=== PATIENT | female | born 1970 | race Asian ===

== ENCOUNTER 2019-02-08 23:54 | Emergency (ER) | payer MEDICAID ==
[~2019-02-08] VITALS: Ht 157.5 cm; Wt 79.4 kg
[2019-02-09] VITALS: BP 159/101
--- NOTE | 2019-02-09 | NUR ---
ED Nurse Note: PT AAOX4, VSS, NO ACUTE DISTRESS. PT COOPERATIVE AND WELL GROOMED. PATIENT AMBULATED TO ED FROM HOME C/O ASTHMA ATTACK SINCE 1699. PATIENT REPORTS TAKING INHALER WITH NO RELIEF. AUDIBLE WHEEZES NOTED HX INTUBATION 2014. PATIENT ALSO REPORTS BACK PAIN WITH NO INJURY. PT BROTHER AT BEDSIDE.
[2019-02-09] MEDS ORDERED: GLIPIZIDE5 MG ORAL (00:02)
[2019-02-09] MEDS ORDERED: AMLODIPINE BESYL5 MG ORAL (00:02)
[2019-02-09] MEDS ORDERED: ADVAIR 500-501 EACH INH (00:02)
[2019-02-09] MEDS ORDERED: LOSARTAN POTASS50 MG ORAL (00:02)
[2019-02-09] MEDS ORDERED: HYDROCHLOROTHIA50 MG ORAL (00:02)
[2019-02-09] MEDS: Albuterol ud Inhalation HHN SCH ×3 (00:17→00:51)
[2019-02-09] MEDS: Ipratropium 0.02% Inh Soln 2.5ml UD HHN SCH ×3 (00:17→00:51)
[2019-02-09 02:00] VITALS: BP 125/78
--- NOTE | 2019-02-09 02:05 | NUR ---
ED Nurse Note: URINE SENT TO LAB.
[2019-02-09 02:18] LABS: APPEARANCE,URINE CLEAR; BILIRUBIN, URINE NEGATIVE (NEGATIVE); COLOR,URINE PALE YELLOW; GLUCOSE, URINE (UA) NEGATIVE (NEGATIVE); KETONES,URINE NEGATIVE (NEGATIVE); LEUKOCYTE ESTERASE ,URINE NEGATIVE (NEGATIVE); NITRITE,URINE NEGATIVE (NEGATIVE); PH,URINE 6 (4.5-8.0); PROTEIN,URINE NEGATIVE (NEGATIVE); UROBILINOGEN,URINE NORMAL MG/DL (0.0-1.0)
[2019-02-09] MEDS ORDERED: TYLENOL EXTRA500 MG ORAL (02:42)
[2019-02-09] MEDS ORDERED: PREDNISONE20 MG ORAL (02:42)
[2019-02-09] MEDS ORDERED: ALBUTEROL SULF8.5 GM INH (02:42)
[2019-02-09 02:45] VITALS: BP 125/78
--- NOTE | 2019-02-09 02:45 | NUR ---
ER DISCHARGE NOTE: Patient is cleared to be discharged per ERMD, pt is aox4, on room air, with stable vital signs. pt was given dc and prescription instructions, pt was able to verbalize understanding, pt id band REMOVED. pt is able to ambulate with steady gait. pt took all belongings.
--- NOTE | 2019-02-09 03:07 | Emergency Room Report ---
History of Present Illness General Chief Complaint: Asthma Source: Patient Present Illness HPI 48-year-old female presents ED for evaluation. Complaining of wheezing and shortness of breath. History of asthma. Started tonight. Denies fevers or chills. Denies cough. Denies chest pain. Denies smoking. Also complaining of lower back pain. Dull, 6 out of 10, nonradiating. Denies any recent fall or injury. Denies flank pain. Denies dysuria or hematuria. No other aggravating relieving factors. Denies any other associated symptoms Allergies: Coded Allergies: DIPHENHYDRAMINE (Verified Allergy, Unknown, 02/09/19) EGG (Verified Allergy, Unknown, 02/09/19) PENICILLINS (Verified Allergy, Unknown, 02/09/19) Patient History Past Medical History: DM, HTN, asthma Pertinent Family History: none Social History: Denies: smoking, alcohol use, drug use Now: No Immunizations: UTD Reviewed Nursing Documentation: PMH: Agreed; PSxH: Agreed Nursing Documentation-PMH Past Medical History: No History, Except For Hx Hypertension: Yes Hx Asthma: Yes Hx Diabetes: Yes Review of Systems All Other Systems: negative except mentioned in HPI Physical Exam Vital Signs Date Time Temp Pulse Resp B/P (MAP) Pulse Ox O2 Delivery O2 Flow Rate FiO2 02/08/19 23:57 98.4 99 14 160/114 (129) 95 Room Air 02/09/19 00:17 21 Sp02 EP Interpretation: reviewed, normal General Appearance: no apparent distress, alert, GCS 15, non-toxic Head: normocephalic, atraumatic Eyes: bilateral eye normal inspection, bilateral eye PERRL ENT: hearing grossly normal, normal pharynx, no angioedema, normal voice Neck: full range of motion, supple/symm/no masses Respiratory: chest non-tender, decreased breath sounds, speaking full sentences , wheezing Cardiovascular #1: regular rate, rhythm, no edema Cardiovascular #2: 2+ carotid (R), 2+ carotid (L), 2+ radial (R), 2+ radial (L) , 2+ dorsalis pedis (R), 2+ dorsalis pedis (L) Gastrointestinal: normal bowel sounds, non tender, soft, non-distended, no guarding, no rebound Rectal: deferred Genitourinary: normal inspection, no CVA tenderness Musculoskeletal: normal range of motion, gait/station normal, tender - paraspinal lumbar tenderness Neurologic: alert, motor strength/tone normal, oriented x3, sensory intact, responsive, speech normal Psychiatric: judgement/insight normal, memory normal, mood/affect normal, no suicidal/homicidal ideation Reflexes: 3+ bicep (R), 3+ bicep (L), 3+ tricep (R), 3+ tricep (L), 3+ knee (R) , 3+ knee (L) Skin: no rash Lymphatic: no adenopathy Medical Decision Making Diagnostic Impression: Primary Impression: Asthma attack Qualified Codes: J45.901 - Unspecified asthma with (acute) exacerbation ER Course Hospital Course 48-year-old female presents to ED complaining of wheezing. h/o asthma. c/o back pain Differential diagnoses include: bronchitis, asthma/COPD, pneumonia, UTI Clinical course Patient placed on stretcher. After initial history, physical exam reveals a female in no acute distress. Bilateral TM unremarkable. No pharyngeal erythema. No tonsillar exudates. No lymphadenopathy. Mild wheezing noted on exam, no signs of respiratory distress or retractions. Patient given Prednisone and albuterol treatment in ED with symptoms improved. UA negative. back pain likely muscular. given tylenol in ED discussed findings with patient. Will discharge to home. Safe for discharge for close outpatient follow-up. States she has a PMD Diagnosis - asthma attack Stable and discharged home with prescriptions for prednisone, albuterol, tylenol. Instructed to followup with PMD. Return to ED if symptoms recur or worsen Labs Test 02/09/19 01:43 Urine Color Pale yellow Urine Appearance Clear Urine pH 6 (4.5-8.0) Urine Specific [place] 1.020 (1.005-1.035) Urine Protein Negative (NEGATIVE) Urine Glucose (UA) Negative (NEGATIVE) Urine Ketones Negative (NEGATIVE) Urine Blood Negative (NEGATIVE) Urine Nitrite Negative (NEGATIVE) Urine Bilirubin Negative (NEGATIVE) Urine Urobilinogen Normal MG/DL (0.0-1.0) Urine Leukocyte Esterase Negative (NEGATIVE) Last Vital Signs Date Time Temp Pulse Resp B/P (MAP) Pulse Ox O2 Delivery O2 Flow Rate FiO2 02/09/19 02:45 98.0 72 20 125/78 100 Room Air 21 Status: improved Disposition: HOME, SELF-CARE Condition: Stable Scripts Acetaminophen* (TYLENOL EXTRA STRENGTH*) 500 Mg Tablet 500 MG ORAL Q8H PRN for Prn Headache/Temp > 101, #30 TAB 0 Refills Prov: Lauri Watson MD 02/09/19 Prednisone* (PREDNISONE*) 20 Mg Tablet 40 MG ORAL DAILY, #10 TAB Prov: Lauri Watson MD 02/09/19 Albuterol Sulfate* (ALBUTEROL SULFATE MDI*) 8.5 Gm Hfa.aer.ad 2 PUFF INH Q6H, #1 EA 0 Refills Prov: Lauri Watson MD 02/09/19 Referrals: [facility] Patient Instructions: Asthma, Adult Lauri Watson MD Feb 09, 2019 03:06
== END 2019-02-09 02:45 | disposition home or self-care (01) ==
LOC: EMR 02-09 00:37
DX: J45.901 Unspecified asthma with (acute) exacerbation (principal); E11.9 Type 2 diabetes mellitus without complications; I10 Essential (primary) hypertension; Z88.0 Allergy status to penicillin; Z88.8 Allergy status to other drugs, medicaments and biological substances; Z91.012 Allergy to eggs; M54.5 Low back pain
CPT/HCPCS: 81003; 94640; J7512; Z7502; 99284